=== PATIENT | male | born 1995 | race Caucasian/White ===

== ENCOUNTER 2021-09-04 09:43 | Emergency (ER) | payer SELFPAY ==
[2021-09-04 09:50] VITALS: BP 131/72; PULSE 64; RESP 20; TEMP 36.4; O2SAT 99
--- NOTE | 2021-09-04 10:23 | ED.SKABFB ---
HPI - Skin/Abscess/Foreign Bdy General Chief complaint: Skin/Abscess/Foreign Body Stated complaint: LUMP AND PAIN ON L SIDE Time Seen by Provider: 09/04/21 10:24 Source: patient and RN notes reviewed Mode of arrival: ambulatory Limitations: no limitations History of Present Illness HPI narrative: Patient has had area on his left upper buttock for about 2 weeks. He has been using some ptql-num-slctaqy antifungal and is not really getting better. Then he noticed a a lump in his left groin. The lump is nontender. MD complaint: lesion Onset (ago): week(s) (2) Location: buttocks (left upper) Severity: moderate Quality: burning and dull Pain Consistency: constant Relieving factors: none Exacerbating factors: palpation Context: none Associated symptoms: denies other symptoms Treatments prior to arrival: other ( Gnwy-bto-dfjjhik antifungal) Related Data Allergies Allergy/AdvReac Type Severity Reaction Status Date / Time No Known Allergies Allergy Verified 09/04/21 10:33 Review of Systems Review of Systems: All systems reviewed & are unremarkable except as noted in HPI and below PMFSH Past Medical History Medical History (Updated 09/04/21 @ 10:44 by Topher Vega MD) No active medical problems Surgical History Surgical History (Updated 09/04/21 @ 10:44 by Topher Vega MD) No pertinent past surgical history Social History Social History (Updated 09/04/21 @ 10:44 by Topher Vega MD) Smoking packs per day: 1.5 Smoking cigarettes per day: 30.0 Smoking status: Current every day smoker Exam Const: General: healthy appearing, no acute distress and alert Nutritional Appearance: well nourished Orientation/consciousness: patient oriented x3 HENMT: Head: normal to inspection Ears: external ears normal Eyes: Conjunctivae: conjunctivae normal Pupils: Equal, round and reactive pupils present EOM: EOMs intact bilaterally Neck: Neck: normal visual inspection Resp: Effort & Inspection: normal respiratory effort Auscultation: clear to auscultation bilaterally Cardio: Rate: regular rate Rhythm: regular rhythm GI: Auscultation: normal bowel sounds Back/Spine/Pelvis: Cervical Spine: cervical ROM normal Thoracic/Lumbar Spine: thoraco-lumbar ROM normal Skin: General skin exam: normal color Lesions: lesion noted plaque left upper buttock size (7cm X 5cm), borders well-defined, color red; no blanching, not with central clearing and not honey-colored, consistency, morphology round, surface erythematous flaking and scaly; not warm and tender (mild) Neuro: General: patient oriented x3, moves all extremities, no meningeal signs, no focal motor deficits and CN's II-XI intact bilaterally Speech: normal speech Gait exam (Neuro): Normal gait present Extrem: General: normal to inspection and no clubbing, cyanosis or edema Psych: Appearance: grossly normal and well kempt Mental Status: mental status grossly normal Affect: normal affect Attitude: cooperative Thought content: Yes Normal thought content present MDM - Skin/Abscess/Foreign Bdy MDM Narrative Medical decision making narrative: I considered and tenia corporis, eczema, tinea versicolor, herpes zoster, impetigo. Discharge Plan Discharge Clinical Impression: Tinea corporis Patient Disposition: Home, Self-Care Condition: Stable Additional Instructions: follow-up with foreclosure field inspector if not improving in the next 7-10 days. Prescriptions: New clotrimazole-betamethasone 1-0.05 % cream 1 applic topical BID 14 Days RF: 0 Follow-up/Referrals: UNKNOWN,DOCTOR [Primary Care Provider] - Stand Alone Forms: Work/School Release IP Time of Disposition: 10:36
[2021-09-04 10:39] VITALS: BP 131/72; PULSE 64; RESP 20; TEMP 36.4; O2SAT 99
== END 2021-09-04 10:40 | disposition home or self-care (01) ==
PROVIDERS: Emergency Provider Emergency Medicine
DX: B35.4 Tinea corporis (principal)
CPT/HCPCS: 99283